=== PATIENT | male | born 1975 | race Caucasian/White ===

== ENCOUNTER 2017-09-07 16:39 | Emergency (ER) | payer OTHER ==
[~2017-09-07] VITALS: Ht 160 cm; Wt 90.0 kg
[2017-09-07 16:44] VITALS: BP 168/72; PULSE 87; RESP 18; TEMP 98; O2SAT 100
--- NOTE | 2017-09-07 19:08 | PD ---
HPI Chief Complaint: Headache Time Seen by Provider: 18:45 Travel History International Travel<30 days: No Contact w/Intl Traveler<30days: No Traveled to known affect area: No History of Present Illness HPI 42-year-old male presents emergency department with complaint of headache. He states that he has been having headaches now for the past 3 weeks. He was seen at the emergency department and Patricio had a CAT scan of his brain. He had been seen by his primary care doctor 1 week ago and was placed on blood pressure medicine. He states that he has taken his blood pressure medicine but he does not feel that it is helped his headaches. He has now discontinue it. He states the headaches were bitemporal but now is global. He states it is moderate in intensity. He has associated tearing of his eyes at time. He denies any blurred vision or double vision. No numbness, tingling or weakness. No nausea vomiting. He states the headache is a dull type pain. There is no alleviating or exacerbating activities. He denies any other medical problems. He has not been sick recently. [facility] Past Medical History Medical History: Denies Significant Hx Tetanus Vaccination: < 5 Years Past Surgical History Narrative Surgical Right ankle fracture with ORIF Social History Alcohol Use: Yes (SOCIAL) Tobacco Use: Yes (5 CIGARETTES A DAY) Substance Use: No Review of Systems Except as stated in HPI: all other systems reviewed are Neg Physical Exam Narrative GENERAL: Well-developed, well-nourished in no apparent distress. Nontoxic appearing. Patient appears very comfortable. HEAD: Normocephalic, atraumatic. EYES: Pupils equal round and reactive. Extraocular motions intact. No scleral icterus. No injection or drainage. ENT: Nose clear. Throat without erythema, tonsillar hypertrophy or exudate. Uvula midline. Airway patent. NECK: Trachea midline. Supple, nontender, moves head freely. No central bony tenderness or spasm. CARDIOVASCULAR: Regular rate and rhythm without murmurs, gallops, or rubs. RESPIRATORY: Clear to auscultation. Breath sounds equal bilaterally. No wheezes , rales, or rhonchi. GASTROINTESTINAL: Abdomen soft, non-tender, nondistended. No hepato-splenomegaly , or palpable masses. No guarding. EXTREMITIES: No clubbing, cyanosis, or edema. No joint tenderness. BACK: Nontender without deformity. No flank tenderness. NEUROLOGICAL: Awake, alert and oriented x 3 .Cranial nerves grossly intact. Motor and sensory grossly within normal limits. Normal speech. Normal gait. Normal tandem gait. Normal finger to nose. Data Data Last Documented VS Vital Signs Date Time Temp Pulse Resp B/P (MAP) Pulse Ox O2 Delivery O2 Flow Rate FiO2 09/07/17 16:44 98.0 87 18 168/72 (104) 100 MDM Medical Decision Making Medical Screen Exam Complete: Yes Emergency Medical Condition: No Medical Record Reviewed: Yes Differential Diagnosis MDM: High Differential diagnoses: Subarachnoid hemorrhage, intracranial bleed, aneurysm, pseudotumor, migraine, cluster headache, atypical migraine, temporal arteritis, connective tissue disorder, hypertension, temporal arteritis, sinusitis, sinus headache,malingering Narrative Course A medical screening exam was performed: At the time of evaluation the presenting medical condition was determined not to be of an emergent nature. The patient was given the option of receiving additional care, but declined. Patient was given options for additional community resources from which to obtain care. The Patient Has Been advised to seek medical attention for their presenting complaint. The patient has been advised to return to the ER at any time if an emergent condition develops. Diagnosis Primary Impression: Encounter for medical screening examination Condition: Orion Salgado Sep 07, 2017 19:08
== END 2017-09-07 19:46 | disposition left against medical advice (07) ==
LOC: NEPD 16:39
DX: R51 Headache (principal); F17.210 Nicotine dependence, cigarettes, uncomplicated
CPT/HCPCS: 99281